=== PATIENT | female | born 1960 | race Caucasian/White ===

== ENCOUNTER 2022-03-11 11:19 | Inpatient (IN) | payer MEDICARE, MEDICAID, SELFPAY ==
--- NOTE | ~2022-03-11 | CT_ITS ---
EXAMINATION: CT ABDOMEN AND PELVIS WITH CONTRAST CLINICAL INFORMATION: Question rectal bleeding. Abdominal pain and distention. COMPARISON: None TECHNIQUE: Multidetector volumetric images were obtained from the superior aspect of the liver through the pubic symphysis following administration 85 mL of Omnipaque 350 intravenous contrast. Sagittal and coronal reformatted images were obtained on the technologist's workstation. Oral contrast: No This CT examination was performed using dose optimization techniques as appropriate, variously including the following: *Automated exposure control *Adjustment of mA and/or kV according to patient size (this includes techniques or standardized protocols for targeted exams where dose is matched to indication/reason for exam; i.e. extremities or head) *Use of iterative reconstruction technique DLP: 737 mGy-cm FINDINGS: LUNG BASES: Dependent and subsegmental bibasilar atelectasis. Catheter tip terminates in the right atrium. LIVER, GALLBLADDER, AND BILIARY TREE: Normal hepatic attenuation. Focal fatty infiltration in the medial segment left liver lobe adjacent to the falciform lumen. No other liver lesions. Dilation of the extrahepatic common bile duct up to approximately 1.1 cm. Mild intrahepatic biliary ductal dilation. Multiple peripherally calcified gallstones. No gallbladder wall thickening or pericholecystic inflammatory change PANCREAS: Mild atrophy. No pancreatic lesion, ductal dilation, or peripancreatic inflammatory change. SPLEEN: Unremarkable. ADRENAL GLANDS: Unremarkable. KIDNEYS AND URETERS: Symmetric nephrograms. No hydronephrosis. 2.1 cm left lower pole simple renal cyst. No enhancing renal lesions. BLADDER: Irregularly thick-walled. Small bladder diverticuli. GASTROINTESTINAL TRACT: Very large/massive amount of formed stool distending the rectosigmoid colon. Mild prerectal/presacral edema. Rectum measures up to 11 cm in diameter. Sigmoid colon measures approximately 11.5 cm. In diameter additional marked distention of the more proximal colon with large amount of stool. No colonic wall thickening. Minimal scattered pericolonic free fluid. No pneumatosis or free air. Significant redundancy of the colon noted. No dilated small bowel loops. ABDOMINAL WALL: No significant hernia is appreciated. LYMPH NODES: No lymphadenopathy. VASCULAR: Normal caliber abdominal aorta. Mild vascular calcifications. PELVIC VISCERA: Grossly unremarkable. OSSEOUS STRUCTURES: Chronic appearing mild superior endplate compression deformities of T8, T9, T10, T11, T12, and L2. Chronic appearing left lower lateral rib fracture deformities. Multilevel degenerative disc disease in the spine. No acute fracture or suspicious osseous lesion. CT/CT abdomen pelvis w con IMPRESSION: 1. Very large/massive amount of formed stool markedly distending the rectum and sigmoid with proximal colonic dilation and mild pericolonic edema/inflammation. Findings are compatible with fecal impaction and distal colonic obstruction. 2. No specific findings of ischemic colitis are present. 3. Cholelithiasis and mild biliary ductal dilation. Cannot exclude CBD stones, distal CBD stricture or small ampullary lesion. Correlate with LFTs and consider further evaluation with MRCP. 4. Diffusely irregularly thick-walled urinary bladder with small bladder diverticuli correlate clinically with signs or symptoms of chronic cystitis or hematuria and additional workup as indicated. Fleischner guidelines were followed.
[2022-03-11 11:26] VITALS: BP 101/69; BP 112/70; PULSE 78; PULSE 99; RESP 18; TEMP 36.7; O2SAT 94; BMI 27.8
--- NOTE | 2022-03-11 11:33 | ED_ITS ---
HPI - Female Genitourinary General Chief complaint: Vaginal Bleeding Stated complaint: VAGINAL BLEEDING X'S 2 DAYS FROM SNF PER EMS Time Seen by Provider: 03/11/22 11:21 Source: patient and RN notes reviewed Mode of arrival: EMS Limitations: altered mental status (dementia) History of Present Illness HPI Narrative: Patient presents via EMS from a intermediate facility, [facility], for evaluation of vaginal bleeding x2 days. Per nursing note reports from the facility, patient is being treated with vaginal metronidazole gel for the past 2 days, yesterday upon administering gel, vaginal bleeding was noted. In addition they had mentioned patient reported abdominal pain 03/07. Patient has no complaints at this time. Is unaware of last menstrual period/menopause date. Related Data Home Medications Medication Instructions Recorded Confirmed acetaminophen 325 mg tablet 650 mg PO BID 03/11/22 03/11/22 aspirin 81 mg chewable tablet 81 mg PO DAILY 03/11/22 03/11/22 atorvastatin 10 mg tablet 1 tab PO DAILY@182903/11/22 03/11/22 chlorhexidine gluconate 0.12 % 15 ml PO DAILY 03/11/22 03/11/22 mouthwash cholecalciferol (vitamin D3) 1,250 1,250 mcg PO QMONTH 03/11/22 03/11/22 mcg (50,000 unit) capsule clozapine 100 mg tablet 1 tab PO DAILY 03/11/22 03/11/22 clozapine 200 mg tablet 1 tab PO DAILY@182903/11/22 03/11/22 clozapine 25 mg tablet 1 tab PO DAILY@182903/11/22 03/11/22 diltiazem HCl 120 mg 1 cap PO DAILY 03/11/22 03/11/22 capsule,extended release 24 hr lamotrigine 100 mg tablet 1 tab PO BID 03/11/22 03/11/22 lorazepam 1 mg tablet 1 tab PO BID 03/11/22 03/11/22 magnesium hydroxide 400 mg/5 mL 30 ml PO BID 03/11/22 03/11/22 oral suspension (Milk of Magnesia) metoprolol tartrate 25 mg tablet 1 tab PO BID 03/11/22 03/11/22 metronidazole 0.75 % vaginal gel 1 ea vaginal DAILY 03/11/22 03/11/22 olanzapine 10 mg tablet 10 mg PO BID 03/11/22 03/11/22 sennosides 8.6 mg tablet (senna) 8.6 mg PO BID 03/11/22 03/11/22 Allergies Allergy/AdvReac Type Severity Reaction Status Date / Time No Known Allergies Allergy Verified 03/11/22 11:32 Review of Systems Review of Systems: Yes Unobtainable due to mental status [facility] Past Medical History Attestation statement: The following information was validated with the patient. Source: old records reviewed Medical History Anoxic brain injury Dementia Epilepsy GERD (gastroesophageal reflux disease) Hyperlipidemia Hypertension Paroxysmal atrial fibrillation Schizophrenia Fei's paralysis Social History Social History Advance Directives: Yes Advance Directives Information Provided: No Advance Directives on File: No Physical Exam Vital Signs: Vital Signs: Last Vital Signs Temp 99.4 F 03/11/22 15:50 Pulse 90 03/11/22 15:50 Resp 14 03/11/22 15:50 BP 92/35 L 03/11/22 15:50 Pulse Ox 95 03/11/22 15:50 O2 Del Method 03/11/22 15:50 BMI result Body Mass Index 27.8 Vital signs have been reviewed as normal and appeared to be correct. Blood pressure normal.? Heart rate normal.? Respiration rate normal. Temperature normal.? Oxygen saturation normal. Appearance: Alert.?Oriented to person only, disoriented to place and time No acute distress.?Normal affect. Eyes: Pupils equal, round and reactive to light.? ENT: Pharynx normal.?? Neck: Normal inspection.? Neck supple.?? CVS: Heart sounds normal. Normal heart rate and rhythm.? Pulses normal.?? Respiratory: No respiratory distress.? Lung sounds clear to auscultation bilaterally?? Abdomen: round, deistended, non-tender to palpation.. Normoactive bowel sounds. Skin: Skin warm and dry.? Normal skin color.? Extremities: No lower extremity edema.? Neuro: Moves all extremities spontaneously. Sensation intact bilaterally. No motor deficits Course Course Course Narrative: Patient is a 61-year-old female with a past medical history of dementia, schizophrenia, anoxic brain injury, paroxysmal atrial fibrillation not on anticoagulation, GERD, hypertension, hyperlipidemia, epilepsy. She presents emergency department for evaluation of 2 days of vaginal bleeding, currently being treated with vaginal metronidazole cream. Unable to obtain history regarding age of menopause, abnormal Paps, family history of cancer. Per intermediate facility patient was previously reporting abdominal pain, at the time of my exam she does not report any pain, has no tenderness upon palpation, however her abdomen is rounded and semi-firm. Contacted , spoke with nurse Mria who advises the patient has not been examined by a medical provider, the metronidazole gel was prescribed by an on-call provider after nursing staff had reported noting vaginal bleeding . The story is not exactly clear, bright red blood was noted in the patient's brief, however she is incontinent of urine and stool, by her report, does not believe bleeding was noted directly from the vagina. Additionally, the staff reports that her abdomen is not typically distended as currently appears. At this time will obtain CBC, CMP, urinalysis, occult stool specimen, and CT of the abdomen and pelvis. Disposition pending results. Reevaluation(s) Reevaluation #1: Leukocytosis 18.2, no anemia, overall unremarkable CMP. Occult stool positive, suspect that the bright red blood noted in patient's brief was most likely rectal in nature as opposed to vaginal. Urinalysis positive for nitrates, 1+ leuk esterase, consistent with urinary tract infection. Remains hemodynamically stable, Will obtain a blood cultures and lactic acid, ceftriaxone 1 g, CT of the abdomen and pelvis is pending at this time. Time: 12:23 Reevaluation #2: CT of the abdomen reveals massive amount of formed stool markedly distending the rectum sigmoid colon with colonic dilation compatible with fecal impaction and distal colonic obstruction. Cholelithiasis with ductal dilation, LFT's is normal. Attempted manual disimpaction, large amount of soft/semi-formed stool was removed, the time of this exam patient noted to have no rectal tone. Consuled surgery, Dr Carlisle, who advised admission to medicine service. Spoke with hospitalist Dr. Mai, who accepted patient for admission. Time: 15:31 MDM - Female Genitourinary Medical Records Attestation: I reviewed the patient's medical records. Lab Data Attestation: I reviewed the patient's lab results. Result diagrams: 03/11/22 11:49 03/11/22 11:49 Labs: Lab Results 03/11/22 03/11/22 03/11/22 Range/Units 11:49 11:49 12:02 WBC 18.2 H (4.8-10.8) X10*3/uL RBC 4.23 (4.20-5.50) X10*6/uL Hgb 13.1 (12.0-16.0) g/dl Hct 40.1 (37.0-47.0) % MCV 94.8 (80.0-98.0) fL MCH 31.0 (27.0-33.0) pg MCHC 32.7 (31.0-35.0) g/dl RDW 13.9 (11.0-16.0) % Plt Count 320 (160-400) X10*3/uL MPV 10.2 (9.4-12.3) fL Immature Gran % (Auto) 0.8 H (0.0-0.4) % Neut % (Auto) 80.1 H (45-73) % Lymph % (Auto) 14.6 L (20-40) % [place] % (Auto) 4.3 (2-11) % Eos % (Auto) 0.0 (0-4) % Baso % (Auto) 0.2 (0-2) % Lymph # (Auto) 2.7 (1.2-4.9) X10*3/uL [place] # (Auto) 0.8 (0.1-1.2) X10*3/uL Eos # (Auto) 0.0 (0.0-0.4) X10*3/uL Baso # (Auto) 0.0 (0.0-0.2) X10*3/uL Abs Immat Gran (auto) 0.15 H (0.00-0.03) X10*3/uL Absolute Neuts (auto) 14.5 H (2.0-8.3) x10*3/uL Absolute Nucleated RBC 0.000 (0.0-0.012) X10*3/uL Nucleated RBC % (auto) 0.0 (0.0-0.2) /100WBC Sodium 142 (135-145) mmol/L Potassium 3.8 (3.3-5.1) mmol/L Chloride 106 (96-108) mmol/L Carbon Dioxide 26 (22-29) mmol/L Anion Gap 14 (12-20) BUN 38 H (9-16) mg/dL Creatinine 0.77 (0.5-1.4) mg/dL Estim Creat Clear Calc 87.3 Estimated GFR > 60 Random Glucose 164 H (60-115) mg/dL Lactic Acid (0.5-2.0) mmol/L Calcium 8.6 (8.4-10.2) mg/dL Total Bilirubin 0.3 (0.0-1.0) mg/dL Direct Bilirubin 0.2 (0.0-0.5) mg/dL AST 12 (5-31) U/L ALT 25 (0-31) U/L Alkaline Phosphatase 117 (39-117) U/L Total Protein 6.3 L (6.5-8.0) g/dL Albumin 3.7 (3.5-5.0) g/dL Urine Color YELLOW Urine Appearance CLOUDY Urine pH 6.0 (5.0-8.0) Ur Specific [place] 1.025 (1.005-1.025) Urine Protein TRACE (NEG-TRACE) MG/DL Urine Glucose (UA) NEG (NEG) MG/DL Urine Ketones 5 (NEG) MG/DL Urine Blood NEG (NEG) Urine Nitrite POS H (NEG) Ur Leukocyte Esterase 1+ H (NEG) Urine RBC 0 (0) /HPF Urine WBC 1-4 (0-4) /HPF Ur Squamous Epith Cells TRACE /LPF Amorphous Sediment 1+ /LPF Urine Bacteria 4+ /LPF Stool Occult Blood (NEGATIVE) 03/11/22 03/11/22 Range/Units 12:02 12:54 WBC (4.8-10.8) X10*3/uL RBC (4.20-5.50) X10*6/uL Hgb (12.0-16.0) g/dl Hct (37.0-47.0) % MCV (80.0-98.0) fL MCH (27.0-33.0) pg MCHC (31.0-35.0) g/dl RDW (11.0-16.0) % Plt Count (160-400) X10*3/uL MPV (9.4-12.3) fL Immature Gran % (Auto) (0.0-0.4) % Neut % (Auto) (45-73) % Lymph % (Auto) (20-40) % [place] % (Auto) (2-11) % Eos % (Auto) (0-4) % Baso % (Auto) (0-2) % Lymph # (Auto) (1.2-4.9) X10*3/uL [place] # (Auto) (0.1-1.2) X10*3/uL Eos # (Auto) (0.0-0.4) X10*3/uL Baso # (Auto) (0.0-0.2) X10*3/uL Abs Immat Gran (auto) (0.00-0.03) X10*3/uL Absolute Neuts (auto) (2.0-8.3) x10*3/uL Absolute Nucleated RBC (0.0-0.012) X10*3/uL Nucleated RBC % (auto) (0.0-0.2) /100WBC Sodium (135-145) mmol/L Potassium (3.3-5.1) mmol/L Chloride (96-108) mmol/L Carbon Dioxide (22-29) mmol/L Anion Gap (12-20) BUN (9-16) mg/dL Creatinine (0.5-1.4) mg/dL Estim Creat Clear Calc Estimated GFR Random Glucose (60-115) mg/dL Lactic Acid 1.4 (0.5-2.0) mmol/L Calcium (8.4-10.2) mg/dL Total Bilirubin (0.0-1.0) mg/dL Direct Bilirubin (0.0-0.5) mg/dL AST (5-31) U/L ALT (0-31) U/L Alkaline Phosphatase (39-117) U/L Total Protein (6.5-8.0) g/dL Albumin (3.5-5.0) g/dL Urine Color Urine Appearance Urine pH (5.0-8.0) Ur Specific [place] (1.005-1.025) Urine Protein (NEG-TRACE) MG/DL Urine Glucose (UA) (NEG) MG/DL Urine Ketones (NEG) MG/DL Urine Blood (NEG) Urine Nitrite (NEG) Ur Leukocyte Esterase (NEG) Urine RBC (0) /HPF Urine WBC (0-4) /HPF Ur Squamous Epith Cells /LPF Amorphous Sediment /LPF Urine Bacteria /LPF Stool Occult Blood POSITIVE (NEGATIVE) Imaging Data CT scan - abdomen: Radiologist's impression: CT/CT abdomen pelvis w con IMPRESSION: ? 1. Very large/massive amount of formed stool markedly distending the rectum and sigmoid with proximal colonic dilation and mild pericolonic edema/inflammation. Findings are compatible with fecal impaction and distal colonic obstruction. 2. No specific findings of ischemic colitis are present. 3. Cholelithiasis and mild biliary ductal dilation. Cannot exclude CBD stones, distal CBD stricture or small ampullary lesion. Correlate with LFTs and consider further evaluation with MRCP. 4. Diffusely irregularly thick-walled urinary bladder with small bladder diverticuli correlate clinically with signs or symptoms of chronic cystitis or hematuria and additional workup as indicated. Discharge Plan Discharge Clinical Impression: Fecal impaction Patient Disposition: Admitted As Inpatient
[2022-03-11 11:52] LABS: MANUAL DIFF FLAG NO
[2022-03-11 11:55] LABS: Basophils Percent Auto 0.2 % (0-2); Hematocrit 40.1 % (37.0-47.0); Hemoglobin 13.1 g/dl (12.0-16.0); Imm Gran Abs Auto 0.15 X10*3/uL (0.00-0.03); Imm Gran Pct Auto 0.8 % (0.0-0.4); Lymphocytes Absolute Auto 2.7 X10*3/uL (1.2-4.9); Lymphocytes Percent Auto 14.6 % (20-40); Mean Corpuscular HGB Conc 32.7 g/dl (31.0-35.0); Mean Corpuscular Volume 94.8 fL (80.0-98.0); Mean Platelet Volume 10.2 fL (9.4-12.3); Monocytes Absolute Auto 0.8 X10*3/uL (0.1-1.2); Monocytes Percent Auto 4.3 % (2-11); Neutrophils Absolute Auto 14.5 x10*3/uL (2.0-8.3); Neutrophils Percent Auto 80.1 % (45-73); Platelet Count 320 X10*3/uL (160-400); Red Blood Count 4.23 X10*6/uL (4.20-5.50); Red Cell Distribution Width 13.9 % (11.0-16.0); White Blood Count 18.2 X10*3/uL (4.8-10.8)
[2022-03-11 12:02] VITALS: BP 95/59; PULSE 92; RESP 18; O2SAT 95
[2022-03-11 12:09] LABS: OBS Int Ctl Valid YES; OBS1 POSITIVE (NEGATIVE)
[2022-03-11 12:12] LABS: Appearance Urine CLOUDY; Color Urine YELLOW; Glucose Urine UA NEG (NEG); Leukocyte Esterase Urine 1+ (NEG); Nitrite Urine POS (NEG); Specific Gravity - Urine 1.025 (1.005-1.025); UACC Culture Trigger YES; Urine Blood NEG (NEG); Urine Ketones 5 MG/DL (NEG); Urine Protein TRACE MG/DL (NEG-TRACE)
[2022-03-11 12:13] LABS: Anion Gap 14 (12-20); Blood Urea Nitrogen 38 mg/dL (9-16); Calcium 8.6 mg/dL (8.4-10.2); Carbon Dioxide 26 mmol/L (22-29); Chloride 106 mmol/L (96-108); Creatinine Clr Calc Pharmacy 87.3; Estimated Glomerular Filt Rate > 60; Glucose Random 164 mg/dL (60-115); Potassium 3.8 mmol/L (3.3-5.1); Sodium 142 mmol/L (135-145)
[2022-03-11 12:19] LABS: Bacteria Urine 4+ /LPF
[2022-03-11 12:20] LABS: Squamous Epithelial Cell Urine TRACE /LPF
[2022-03-11 12:21] LABS: Amorphous Sediment Urine 1+ /LPF; RBC Urine 0 /HPF (0)
[2022-03-11] MEDS: 0.9 % Sodium Chloride 1,000 ML 999 ML IV ×2 (12:58→17:34)
[2022-03-11 13:13] LABS: Alanine Aminotransferase 25 U/L (0-31); Albumin Level 3.7 g/dL (3.5-5.0); Alkaline Phosphatase 117 U/L (39-117); Aspartate Amino Transferase 12 U/L (5-31); Bilirubin Direct 0.2 mg/dL (0.0-0.5); Bilirubin Total 0.3 mg/dL (0.0-1.0); Total Protein 6.3 g/dL (6.5-8.0)
[2022-03-11 13:16] LABS: Lactic Acid 1.4 mmol/L (0.5-2.0)
[2022-03-11] MEDS: cefTRIAXone sodium 1 GM in 0.9 % Sodium Chloride 50 ML IV (13:46)
[2022-03-11] MEDS: iohexoL 350 MG/ML 100 ML INFUS..BTL IV (13:50)
[2022-03-11 14:20] VITALS: BP 101/61; PULSE 88; RESP 18; O2SAT 94
[2022-03-11 15:50] VITALS: BP 92/35; PULSE 90; RESP 14; TEMP 37.4; O2SAT 95
--- NOTE | 2022-03-11 16:24 | PM.CNGS ---
History of Present Illness Consult details Consult date: 03/11/22 Reason for consult: other (Constipation and colon distention on CT) Narrative: The patient is a 61-year-old woman who is a long-term resident in a nursing facility, [facility], who is seen at the request of the emergency room team here at [facility] because of abdominal distention. Patient is a poor historian but EMR documents Anoxic brain injury, Dementia, Epilepsy, GERD (gastroesophageal reflux disease), Hyperlipidemia, Hypertension, Paroxysmal atrial fibrillation, Schizophrenia, Fei's paralysis notes that she has been having difficulty with bowel movements for some time. The nurse practitioner tried to manually disimpact the patient encountered soft and firm stool, no rock hard rectal mass, but CT scan of the abdomen pelvis shows a significant stool burden in the colon. Per records, the patient was having vaginal bleeding of unclear etiology. Please see ER notes for additional details regarding medications. Review of Systems Review of Systems: Yes all other systems are reviewed and are negative and Unobtainable due to mental condition PMFSH Past Medical History Medical History (Updated 03/11/22 @ 16:34 by Galen Carlisle MD) Anoxic brain injury Dementia Epilepsy GERD (gastroesophageal reflux disease) Hyperlipidemia Hypertension Paroxysmal atrial fibrillation Schizophrenia Fei's paralysis Functional capacity: bed bound Social History Social History Advance Directives: Yes Advance Directives Information Provided: No Advance Directives on File: No Meds Allergies Allergy/AdvReac Type Severity Reaction Status Date / Time No Known Allergies Allergy Verified 03/11/22 11:32 Active Medications: Current Medications Pharmacy Consult (Consult Rx Perform Med Rec) 1 each MISCELLANE ONCE PRN PRN Reason: Consult order Physical Exam Vital Signs: Vital Signs: Last Vital Signs Temp 99.4 F 03/11/22 15:50 Pulse 90 03/11/22 15:50 Resp 14 03/11/22 15:50 BP 92/35 L 03/11/22 15:50 Pulse Ox 95 03/11/22 15:50 O2 Del Method 03/11/22 15:50 BMI result Body Mass Index 27.8 On exam, the patient is nontoxic but communicative. NC/AT, PERRLA, EOMI Heart is regular, normal S1-S2 Lungs are clear and equal anteriorly Abdomen is distended and obese but soft. There is tympany to percussion but there is no peritoneal sign and no rebound, rigidity or guarding Rectal was deferred as the nurse practitioner had just attempted manual disimpaction in also noted patulous sphincter tone in addition to soft stool Skin has decreased turgor is to be expected with her age Extremities are free of cyanosis clubbing edema Results Labs Result diagrams: 03/11/22 11:49 03/11/22 11:49 Labs: Abnormal lab results 03/11/22 03/11/22 03/11/22 Range/Units 11:49 11:49 12:02 WBC 18.2 H (4.8-10.8) X10*3/uL Immature Gran % (Auto) 0.8 H (0.0-0.4) % Neut % (Auto) 80.1 H (45-73) % Lymph % (Auto) 14.6 L (20-40) % Abs Immat Gran (auto) 0.15 H (0.00-0.03) X10*3/uL Absolute Neuts (auto) 14.5 H (2.0-8.3) x10*3/uL BUN 38 H (9-16) mg/dL Random Glucose 164 H (60-115) mg/dL Total Protein 6.3 L (6.5-8.0) g/dL Urine Nitrite POS H (NEG) Ur Leukocyte Esterase 1+ H (NEG) Short CBC 03/11/22 Range/Units 11:49 WBC 18.2 H (4.8-10.8) X10*3/uL Hgb 13.1 (12.0-16.0) g/dl Hct 40.1 (37.0-47.0) % Plt Count 320 (160-400) X10*3/uL BMP 03/11/22 11:49 Sodium 142 Potassium 3.8 Chloride 106 Carbon Dioxide 26 BUN 38 H Creatinine 0.77 Calcium 8.6 Liver Function 03/11/22 Range/Units 11:49 Total Bilirubin 0.3 (0.0-1.0) mg/dL Direct Bilirubin 0.2 (0.0-0.5) mg/dL AST 12 (5-31) U/L ALT 25 (0-31) U/L Alkaline Phosphatase 117 (39-117) U/L Albumin 3.7 (3.5-5.0) g/dL Urine 03/11/22 Range/Units 12:02 Urine Color YELLOW Urine Appearance CLOUDY Urine pH 6.0 (5.0-8.0) Ur Specific [place] 1.025 (1.005-1.025) Urine Protein TRACE (NEG-TRACE) MG/DL Urine Glucose (UA) NEG (NEG) MG/DL All other labs normal. Imaging Abdomen CT scan report/results: report reviewed and image reviewed CT scan - pelvis: report reviewed and image reviewed Additional studies: In reviewing the actual images, the colon is dilated and full of stool to the transverse colon. Assessment and Plan (1) Constipation: Status: Acute (2) Fecal impaction: Status: Acute Plan Would recommend soapsuds enemas possibly with a rectal bag to slowly infused thumb. There is a significant stool burden will not be reach by digital disimpaction as evidence by the nurse practitioners attempt. I have ordered a GI consultation to Dr. Handley; I am not sure if there is a prokinetic agent that would benefit the patient, or role for laxative/bowel regime. Would encourage discussion with GI before recommending surgery. Additional information regarding her immobility, etiology of her constipation, DPOA regarding health matters/consent discussion for a possible laparoscopic diverting/permanent colostomy may be in order at a later time, however without clearly identifying her constipation cause and whether or not she requires subtotal colectomy is in order. Medical management with lactulose or some other agent would be preferable to surgery at this time, or other PO laxatives unless GI has another suggestion. Thank you for allowing me to participate in her care. Please call me with any surgical questions. Procedures Date of Service Date of Service: 03/11/22
--- NOTE | 2022-03-11 16:54 | P.HPHOSP_ITS ---
History of Present Illness Date of Service: 03/11/22 Chief Complaint: Abdominal distension, rectal bleeding A 61 years old female with PMH of anoxic brain injury, dementia, epilepsy, GERD, HTN, AFib, schizophrenia among others who presents to the hospital from [facility] for abdominal distension and bleeding that was thought vaginal at the facility. The patient is unable to provide any meaningful history. History was taken mainly from ED provider and notes. Upon resent patient PLATINUM SMITH tried manual disimpaction of the large stool burden and impaction and was able to remove semi formed stool with no rock-hard stool noticed. CT scan of the abdomen showed significant colonic distension and stool burden. Admitted for further evaluation and treatment. Review of Systems Review of Systems: No fever, chills or weakness No chest pain, palpitation No shortness of breath or coughing No abdominal pain, nausea or vomiting No urinary symptoms No any rash or wounds PMFSH Medical History Anoxic brain injury Dementia Epilepsy GERD (gastroesophageal reflux disease) Hyperlipidemia Hypertension Paroxysmal atrial fibrillation Schizophrenia Fei's paralysis Functional capacity: bed bound Social History Advance Directives: Yes Advance Directives Information Provided: No Advance Directives on File: No Meds Allergies Allergy/AdvReac Type Severity Reaction Status Date / Time No Known Allergies Allergy Verified 03/11/22 11:32 Active Medications: Current Medications Acetaminophen (Acetaminophen 325 Mg Tablet) 650 mg PO Q6H PRN PRN Reason: Pain, Mild (Pain Scale 1-3) Sodium Chloride (Ns) 1,000 mls @ 999 mls/hr IV .Q1H1M MICHELLE Stop: 03/11/22 17:30 Ceftriaxone Sodium 1 gm/ (Sodium Chloride) 50 mls @ 100 mls/hr IV Q24H MICHELLE Sodium Chloride () 1,000 mls @ 100 mls/hr IVCONT .Q10H MICHELLE Ondansetron HCl (Ondansetron Hcl 4 Mg/2 Ml Vial) 4 mg IVPUSH Q8H PRN PRN Reason: Nausea and Vomiting Pharmacy Consult (Consult Rx Perform Med Rec) 1 each MISCELLANE ONCE PRN PRN Reason: Consult order Polyethylene Glycol (Polyethylene Glycol 3350 17 Gm Powd.Pack) 17 gm PO BID MICHELLE Senna (Senna [place] Extract Oral Syrup 15 Ml Syrup) 15 ml PO BEDTIME [facility] Sodium Chloride (0.9 % Sodium Chloride Flush 3 Ml Syringe) 3 ml IVFLUSH [facility] Home Medications Medication Instructions Recorded Confirmed Last Taken Type acetaminophen 325 mg tablet 650 mg PO BID 03/11/22 03/11/22 03/11/22 History aspirin 81 mg chewable tablet 81 mg PO DAILY 03/11/22 03/11/22 03/11/22 History atorvastatin 10 mg tablet 1 tab PO DAILY@182903/11/22 03/11/22 03/10/22 History chlorhexidine gluconate 0.12 % 15 ml PO DAILY 03/11/22 03/11/22 03/11/22 History mouthwash cholecalciferol (vitamin D3) 1,250 1,250 mcg PO QMONTH 03/11/22 03/11/22 03/02/22 History mcg (50,000 unit) capsule clozapine 100 mg tablet 1 tab PO DAILY 03/11/22 03/11/22 03/11/22 09:00 History clozapine 200 mg tablet 1 tab PO DAILY@182903/11/22 03/11/22 03/10/22 History clozapine 25 mg tablet 1 tab PO DAILY@182903/11/22 03/11/22 03/10/22 History diltiazem HCl 120 mg 1 cap PO DAILY 03/11/22 03/11/22 03/11/22 History capsule,extended release 24 hr lamotrigine 100 mg tablet 1 tab PO BID 03/11/22 03/11/22 03/11/22 09:00 History lorazepam 1 mg tablet 1 tab PO BID 03/11/22 03/11/22 03/11/22 09:00 History magnesium hydroxide 400 mg/5 mL 30 ml PO BID 03/11/22 03/11/22 03/11/22 History oral suspension (Milk of Magnesia) metoprolol tartrate 25 mg tablet 1 tab PO BID 03/11/22 03/11/22 03/11/22 09:00 History metronidazole 0.75 % vaginal gel 1 ea vaginal DAILY 03/11/22 03/11/22 03/11/22 History olanzapine 10 mg tablet 10 mg PO BID 03/11/22 03/11/22 03/11/22 History sennosides 8.6 mg tablet (senna) 8.6 mg PO BID 03/11/22 03/11/22 03/11/22 History Physical Exam Vital Signs and Narrative: Vital Signs: Last Vital Signs Temp 99.4 F 03/11/22 15:50 Pulse 90 03/11/22 15:50 Resp 14 03/11/22 15:50 BP 92/35 L 03/11/22 15:50 Pulse Ox 95 03/11/22 15:50 O2 Del Method 03/11/22 15:50 BMI result Body Mass Index 27.8 Const: Other: Constitutional : Alert, interactive, not in distress Neck : Normal inspection, Supple Cardiovascular : RRR, no JVP, no lower extremity edema Respiratory : fair bilateral air entry, no crackles, wheezes or rhonchi Gastrointestinal: soft, lax, decreased bowel sounds, Non tender, distended abdomen Skin : Warm, Dry Neurological : Alert & disoriented to time and place, No focal deficit Results Labs CBC and Chem 7: 03/11/22 11:49 03/11/22 11:49 Labs: Laboratory Results - last 24 hr 03/11/22 03/11/22 03/11/22 11:49 11:49 12:02 MCV 94.8 MCH 31.0 MCHC 32.7 RDW 13.9 Plt Count 320 MPV 10.2 Immature Gran % (Auto) 0.8 H Neut % (Auto) 80.1 H Lymph % (Auto) 14.6 L [place] % (Auto) 4.3 Eos % (Auto) 0.0 Baso % (Auto) 0.2 Lymph # (Auto) 2.7 [place] # (Auto) 0.8 Eos # (Auto) 0.0 Baso # (Auto) 0.0 Abs Immat Gran (auto) 0.15 H Absolute Neuts (auto) 14.5 H Absolute Nucleated RBC 0.000 Nucleated RBC % (auto) 0.0 Anion Gap 14 Estim Creat Clear Calc 87.3 Estimated GFR > 60 Random Glucose 164 H Lactic Acid Calcium 8.6 Total Bilirubin 0.3 Direct Bilirubin 0.2 AST 12 ALT 25 Alkaline Phosphatase 117 Total Protein 6.3 L Albumin 3.7 Urine Color YELLOW Urine Appearance CLOUDY Urine pH 6.0 Ur Specific [place] 1.025 Urine Protein TRACE Urine Glucose (UA) NEG Urine Ketones 5 Urine Blood NEG Urine Nitrite POS H Ur Leukocyte Esterase 1+ H Urine RBC 0 Urine WBC 1-4 Ur Squamous Epith Cells TRACE Amorphous Sediment 1+ Urine Bacteria 4+ Stool Occult Blood 03/11/22 03/11/22 12:02 12:54 MCV MCH MCHC RDW Plt Count MPV Immature Gran % (Auto) Neut % (Auto) Lymph % (Auto) [place] % (Auto) Eos % (Auto) Baso % (Auto) Lymph # (Auto) [place] # (Auto) Eos # (Auto) Baso # (Auto) Abs Immat Gran (auto) Absolute Neuts (auto) Absolute Nucleated RBC Nucleated RBC % (auto) Anion Gap Estim Creat Clear Calc Estimated GFR Random Glucose Lactic Acid 1.4 Calcium Total Bilirubin Direct Bilirubin AST ALT Alkaline Phosphatase Total Protein Albumin Urine Color Urine Appearance Urine pH Ur Specific [place] Urine Protein Urine Glucose (UA) Urine Ketones Urine Blood Urine Nitrite Ur Leukocyte Esterase Urine RBC Urine WBC Ur Squamous Epith Cells Amorphous Sediment Urine Bacteria Stool Occult Blood POSITIVE Imaging Radiologist's Impressions: Impressions Abdomen/Pelvis CT 03/11/22 13:48 IMPRESSION: 1. Very large/massive amount of formed stool markedly distending the rectum and sigmoid with proximal colonic dilation and mild pericolonic edema/inflammation. Findings are compatible with fecal impaction and distal colonic obstruction. 2. No specific findings of ischemic colitis are present. 3. Cholelithiasis and mild biliary ductal dilation. Cannot exclude CBD stones, distal CBD stricture or small ampullary lesion. Correlate with LFTs and consider further evaluation with MRCP. 4. Diffusely irregularly thick-walled urinary bladder with small bladder diverticuli correlate clinically with signs or symptoms of chronic cystitis or hematuria and additional workup as indicated. Fleischner guidelines were followed. Assessment and Plan (1) Fecal impaction: Status: Acute (2) Constipation: Status: Acute (3) Hypotension: Status: Acute Plan A 61 years old female with PMH of anoxic brain injury, dementia, epilepsy, GERD, HTN, AFib, schizophrenia among others who presents to the hospital from [facility] for abdominal distension and bleeding . Severe constipation Fecal impaction CT scan as reported Mechanically disimpacted in the emergency Start enema Start MiraLax and senna Surgery input appreciated, hold on any intervention now and get GI evaluation GI consult pending Hypotension Not due to sepsis Patient seems to be dehydrated with elevated BUN To give IV fluid and monitor response Anoxic brain injury, seizure disorder To continue home medications Paroxysmal AFib Hold any anticoagulation continue ?Metoprolol schizophrenia Clozapine, Olanzapine home dose DVT PPX SCDs for now Given the patient hypotension and severe constipation she will likely need 2 overnight hospital stay for further evaluation and management. Quality Stroke Does the patient have a stroke diagnosis?: No VTE Prior VTE?: No VTE Risk Level:: Medical - moderate - high VTE Device Contraindication: Treatment Not Indicated VTE Drug Contraindication: Treatment Not Indicated
[2022-03-11 17:41] LABS: COVID-19 Test Negative (Negative); IDNOW Serial# 9DB6401D
--- NOTE | 2022-03-11 17:44 | PHA.MEDREC ---
Pharmacy Consult ? Medication Reconciliation Pharmacy has completed the medication reconciliation. [facility]
[2022-03-11] MEDS: Atorvastatin Calcium 10 MG TABLET PO (18:47)
[2022-03-11] MEDS: cloZAPine 100 MG TABLET 200 MG PO (19:12)
[2022-03-11] MEDS: cloZAPine 25 MG TABLET PO (19:12)
[2022-03-11] MEDS: LORazepam 1 MG TABLET PO (20:38)
[2022-03-11] MEDS: OLANZapine 10 MG TABLET PO (20:38)
[2022-03-11] MEDS: lamoTRIgine 100 MG TABLET PO (20:38)
[2022-03-11] MEDS: Metoprolol Tartrate 25 MG TABLET PO (20:38)
[2022-03-11] MEDS: Acetaminophen 325 MG TABLET 650 MG PO (20:38)
[2022-03-11 20:45] VITALS: BP 103/66; PULSE 100; RESP 17; O2SAT 94
--- NOTE | 2022-03-11 20:54 | PC.NURSE ---
administered medication to pt per MAR
--- NOTE | 2022-03-11 20:55 | PC.NURSE ---
assumed care of pt at 1900
[2022-03-11] MEDS: polyethylene glycoL 3350 17 GM POWD.PACK PO (21:00)
[2022-03-11 23:08] VITALS: BP 103/72; PULSE 91; RESP 16; TEMP 36.8; O2SAT 98
--- NOTE | 2022-03-11 23:09 | PC.NURSE ---
PATIENT CAME OVER FROM MAIN ED ,GOT MOVED INTO BED ,VITALS SIGN TAKEN PER ENRRIQUE APPLY,PATIENT NOW RESTING .
--- NOTE | 2022-03-12 00:23 | PC.NURSE ---
PATIENT ASK FOR SOME JUICE DRANK 120 ML ORANGE JUICE .
[2022-03-12] MEDS: Sodium Chloride 0.45 % 1,000 ML 100 ML IVCONT (02:53)
[2022-03-12 05:44] VITALS: BP 117/72; PULSE 95; RESP 16; TEMP 36.3; O2SAT 98
[2022-03-12 06:54] LABS: Hematocrit 39.5 % (37.0-47.0); Hemoglobin 12.5 g/dl (12.0-16.0); Mean Corpuscular HGB Conc 31.6 g/dl (31.0-35.0); Mean Corpuscular Hemoglobin 30.8 pg (27.0-33.0); Mean Corpuscular Volume 97.3 fL (80.0-98.0); Mean Platelet Volume 10.5 fL (9.4-12.3); Platelet Count 315 X10*3/uL (160-400); Red Blood Count 4.06 X10*6/uL (4.20-5.50); Red Cell Distribution Width 13.9 % (11.0-16.0); White Blood Count 18.3 X10*3/uL (4.8-10.8)
[2022-03-12 07:19] LABS: Anion Gap 12 (12-20); Blood Urea Nitrogen 29 mg/dL (9-16); Calcium 8.1 mg/dL (8.4-10.2); Carbon Dioxide 25 mmol/L (22-29); Chloride 110 mmol/L (96-108); Creatinine Clr Calc Pharmacy 90.9; Estimated Glomerular Filt Rate > 60; Glucose Random 115 mg/dL (60-115); Potassium 3.9 mmol/L (3.3-5.1); Sodium 143 mmol/L (135-145)
--- NOTE | 2022-03-12 07:40 | P.CNGI_ITS ---
History of Present Illness Data of Consult Service Date: 03/12/22 Requesting physician: Roni Mai Primary Care Provider: Vanita Wilson MD HPI Reason for consult: rectal bleeding, constipation 61 years old female with PMH of anoxic brain injury, dementia, epilepsy, GERD, HTN, AFib, schizophrenia among others who presents to the hospital from [facility] for abdominal distension and bleeding that was thought vaginal at the facility.? The patient is unable to provide any meaningful history.? History was taken mainly from ED provider and notes. Upon resent patient OCC THER tried manual disimpaction of the large stool burden and impaction and was able to remove semi formed stool with no rock-hard stool noticed.? CT scan of the abdomen showed significant colonic distension and stool burden. Admitted for further evaluation and treatment. Review of Systems Review of Systems: Yes Unobtainable due to mental condition and Unobtainable due to mental status PMFSH Past Medical History Medical History Anoxic brain injury Dementia Epilepsy GERD (gastroesophageal reflux disease) Hyperlipidemia Hypertension Paroxysmal atrial fibrillation Schizophrenia Fei's paralysis Functional capacity: bed bound Social History Social History Advance Directives: Yes Advance Directives Information Provided: No Advance Directives on File: No Meds Allergies Allergy/AdvReac Type Severity Reaction Status Date / Time No Known Allergies Allergy Verified 03/11/22 11:32 Active Medications: Current Medications Acetaminophen (Acetaminophen 325 Mg Tablet) 650 mg PO Q6H PRN PRN Reason: Pain, Mild (Pain Scale 1-3) Acetaminophen (Acetaminophen 325 Mg Tablet) 650 mg PO BID [facility] Last Admin: 03/11/22 20:38 Dose: 650 mg Aspirin (Aspirin 81 Mg Tab.Chew) 81 mg PO DAILY [facility] Atorvastatin Calcium (Atorvastatin Calcium 10 Mg Tablet) 10 mg PO DAILY@183 [facility] Last Admin: 03/11/22 18:47 Dose: 10 mg Chlorhexidine Gluconate (Chlorhexidine Gluc Oral Rinse 15 Ml Mouthwash) 15 ml BUCCAL DAILY [facility] Clozapine (Clozapine 25 Mg Tablet) 25 mg PO DAILY@183 [facility] Last Admin: 03/11/22 19:12 Dose: 25 mg Clozapine (Clozapine 100 Mg Tablet) 100 mg PO DAILY [facility] Clozapine (Clozapine 100 Mg Tablet) 200 mg PO DAILY@1830 [facility] Last Admin: 03/11/22 19:12 Dose: 200 mg Diltiazem HCl (Diltiazem Hcl Cd 120 Mg Cap.Er.Deg) 120 mg PO DAILY [facility]; Protocol Ceftriaxone Sodium 1 gm/ (Sodium Chloride) 50 mls @ 100 mls/hr IV Q24H [facility] Sodium Chloride () 1,000 mls @ 100 mls/hr IVCONT .Q10H [facility] Last Admin: 03/12/22 02:53 Dose: 100 mls/hr Lamotrigine (Lamotrigine 100 Mg Tablet) 100 mg PO BID [facility] Last Admin: 03/11/22 20:38 Dose: 100 mg Lorazepam (Lorazepam 1 Mg Tablet) 1 mg PO BID [facility] Last Admin: 03/11/22 20:38 Dose: 1 mg Magnesium Hydroxide (Milk Of Magnesia 30 Ml Oral.Susp) 30 ml PO BID [facility] Last Admin: 03/11/22 22:23 Dose: Not Given Metoprolol Tartrate (Metoprolol Tartrate 25 Mg Tablet) 25 mg PO BID [facility]; Protocol Last Admin: 03/11/22 20:38 Dose: 25 mg Metronidazole (Metronidazole 0.75 % Vaginal Gel 70 Gm Tube) 5 gm VAGINAL DAILY [facility] Olanzapine (Olanzapine 10 Mg Tablet) 10 mg PO BID [facility] Last Admin: 03/11/22 20:38 Dose: 10 mg Ondansetron HCl (Ondansetron Hcl 4 Mg/2 Ml Vial) 4 mg IVPUSH Q8H PRN PRN Reason: Nausea and Vomiting Pharmacy Consult (Consult Rx Perform Med Rec) 1 each MISCELLANE ONCE PRN PRN Reason: Consult order Polyethylene Glycol (Polyethylene Glycol 3350 17 Gm Powd.Pack) 17 gm PO BID [facility] Last Admin: 03/11/22 21:00 Dose: 17 gm Senna (Senna [place] Extract Oral Syrup 15 Ml Syrup) 15 ml PO BEDTIME [facility] Last Admin: 03/11/22 22:23 Dose: Not Given Senna (Sennosides 8.6 Mg Tablet) 8.6 mg PO BID [facility] Last Admin: 03/11/22 22:23 Dose: Not Given Sodium Chloride (0.9 % Sodium Chloride Flush 3 Ml Syringe) 3 ml IVFLUSH QSHIFT [facility] Last Admin: 03/12/22 00:29 Dose: Not Given Home Medications Medication Instructions Recorded Confirmed Last Taken Type acetaminophen 325 mg tablet 650 mg PO BID 03/11/22 03/11/22 03/11/22 History aspirin 81 mg chewable tablet 81 mg PO DAILY 03/11/22 03/11/22 03/11/22 History atorvastatin 10 mg tablet 1 tab PO DAILY@0 03/11/22 03/11/22 03/10/22 History chlorhexidine gluconate 0.12 % 15 ml PO DAILY 03/11/22 03/11/22 03/11/22 History mouthwash cholecalciferol (vitamin D3) 1,250 1,250 mcg PO QMONTH 03/11/22 03/11/22 03/02/22 History mcg (50,000 unit) capsule clozapine 100 mg tablet 1 tab PO DAILY 03/11/22 03/11/22 03/11/22 09:00 History clozapine 200 mg tablet 1 tab PO DAILY@182903/11/22 03/11/22 03/10/22 History clozapine 25 mg tablet 1 tab PO DAILY@182903/11/22 03/11/22 03/10/22 History diltiazem HCl 120 mg 1 cap PO DAILY 03/11/22 03/11/22 03/11/22 History capsule,extended release 24 hr lamotrigine 100 mg tablet 1 tab PO BID 03/11/22 03/11/22 03/11/22 09:00 History lorazepam 1 mg tablet 1 tab PO BID 03/11/22 03/11/22 03/11/22 09:00 History magnesium hydroxide 400 mg/5 mL 30 ml PO BID 03/11/22 03/11/22 03/11/22 History oral suspension (Milk of Magnesia) metoprolol tartrate 25 mg tablet 1 tab PO BID 03/11/22 03/11/22 03/11/22 09:00 History metronidazole 0.75 % vaginal gel 1 ea vaginal DAILY 03/11/22 03/11/22 03/11/22 History olanzapine 10 mg tablet 10 mg PO BID 03/11/22 03/11/22 03/11/22 History sennosides 8.6 mg tablet (senna) 8.6 mg PO BID 03/11/22 03/11/22 03/11/22 History Physical Exam Vital Signs: Vital Signs: Last Vital Signs Temp 97.4 F 03/12/22 05:44 Pulse 95 03/12/22 05:44 Resp 16 03/12/22 05:44 BP 117/72 03/12/22 05:44 Pulse Ox 98 03/12/22 05:44 O2 Del Method 03/12/22 05:44 BMI result Body Mass Index 27.8 Const: Other: Constitutional : Alert, interactive, not in distress Neck : Normal inspection, Supple Cardiovascular : RRR, no JVP, no lower extremity edema Respiratory : fair bilateral air entry, no crackles, wheezes or rhonchi Gastrointestinal: soft, lax, decreased bowel sounds, Non tender, distended abdomen Skin : Warm, Dry Neurological : Alert & disoriented to time and place, No focal deficit Results Labs CBC & Chem 7: 03/12/22 06:37 03/12/22 06:37 Labs: Short CBC 03/11/22 03/12/22 Range/Units 11:49 06:37 WBC 18.2 H 18.3 H (4.8-10.8) X10*3/uL Hgb 13.1 12.5 (12.0-16.0) g/dl Hct 40.1 39.5 (37.0-47.0) % Plt Count 320 315 (160-400) X10*3/uL BMP 03/11/22 03/12/22 11:49 06:37 Sodium 142 143 Potassium 3.8 3.9 Chloride 106 110 H Carbon Dioxide 26 25 BUN 38 H 29 H Creatinine 0.77 0.74 Calcium 8.6 8.1 L Liver Function 03/11/22 Range/Units 11:49 Total Bilirubin 0.3 (0.0-1.0) mg/dL Direct Bilirubin 0.2 (0.0-0.5) mg/dL AST 12 (5-31) U/L ALT 25 (0-31) U/L Alkaline Phosphatase 117 (39-117) U/L Albumin 3.7 (3.5-5.0) g/dL Urine 03/11/22 Range/Units 12:02 Urine Color YELLOW Urine Appearance CLOUDY Urine pH 6.0 (5.0-8.0) Ur Specific [place] 1.025 (1.005-1.025) Urine Protein TRACE (NEG-TRACE) MG/DL Urine Glucose (UA) NEG (NEG) MG/DL Assessment and Plan (1) Fecal impaction: Status: Acute (2) Constipation: Status: Acute
[2022-03-12 08:20] LABS: Thyroid Stimulating Hormone 1.11 uIU/mL (0.32-4.0)
[2022-03-12] MEDS: Chlorhexidine Gluc Oral Rinse 15 ML MOUTHWASH BUCCAL (09:37)
[2022-03-12] MEDS: Milk of Magnesia 30 ML ORAL.SUSP PO (09:37)
[2022-03-12] MEDS: dilTIAZem HCL CD 120 MG CAP.ER.DEG PO (09:37)
[2022-03-12] MEDS: polyethylene glycoL 3350 17 GM POWD.PACK PO (09:37)
[2022-03-12] MEDS: Sennosides 8.6 MG TABLET PO (09:37)
[2022-03-12] MEDS: Acetaminophen 325 MG TABLET 650 MG PO (09:38)
[2022-03-12] MEDS: Metoprolol Tartrate 25 MG TABLET PO (09:38)
[2022-03-12] MEDS: lamoTRIgine 100 MG TABLET PO (09:38)
[2022-03-12] MEDS: OLANZapine 10 MG TABLET PO (09:38)
[2022-03-12] MEDS: LORazepam 1 MG TABLET PO (09:38)
[2022-03-12] MEDS: cloZAPine 100 MG TABLET PO (09:38)
[2022-03-12] MEDS: Aspirin 81 MG TAB.CHEW PO (09:38)
[2022-03-12] MEDS: 0.9 % Sodium Chloride Flush 3 ML SYRINGE IVFLUSH (09:39)
--- NOTE | 2022-03-12 12:07 | PC.NURSE ---
Pt Alert, oriented to person only which appears to be baseline. Pt found this AM to be covered in large amount of hard formed stool as well as liquid stool. Dried and crusted to skin. Inc care, linen change and T&Px2 every 2 hours provided by this RN and MEASURING MACHINE TENDER on staff. Pt only c/o rectal pain with BM. Medicated as per [facility] orders. Call pope within reach. Awaiting bed assignment. Will continue to monitor.
[2022-03-12] MEDS: cefTRIAXone sodium 1 GM in 0.9 % Sodium Chloride 50 ML IV (12:59)
[2022-03-12] MEDS: metroNIDAZOLE 0.75 % Vaginal Gel 70 GM TUBE VAGINAL (13:00)
--- NOTE | 2022-03-12 13:51 | PC.NURSE ---
1330: pt a and o to baseline, pt sat up in bed, given lunch. pt conversational. 1335: pt was found by GUILLERMO lee to be cyanotic w/o pulse and apenic. tuna sandwich manually cleared from airway by RN, CPR started by this copy writer. 1 round CPR done. DNR/DNI confirmed. Time of 1340 by vicky.
--- NOTE | 2022-03-12 13:57 | PM.DS ---
DS: Providers Provider Date of Service: 03/12/22 Date of admission: 03/11/22 16:52 Primary care physician: Vanita Wilson MD Consults: 03/11/22 16:20 Consult to Gastroenterology Routine Consulting Provider: Severiano Handley Reason for consultation: Severe constipation; ? medical kinetic agents? Has provider been notified: No DS: Diagnosis Discharge Diagnosis (1) Fecal impaction: Status: Acute (2) Constipation: Status: Acute (3) Aspiration into airway: Status: Acute DS: Summary Hospital Course Hospital Course: Admission note HPI A 61 years old female with PMH of anoxic brain injury, dementia, epilepsy, GERD, HTN, AFib, schizophrenia among others who presents to the hospital from [facility] for abdominal distension and bleeding that was thought vaginal at the facility.? The patient is unable to provide any meaningful history.? History was taken mainly from ED provider and notes. 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 CT scan of the abdomen showed significant colonic distension and stool burden. Admitted for further evaluation and treatment. Hospital course The patient was admitted for treatment of fecal impaction. Had manual disimpaction and started on enema and laxatives with good response as she started to move her bowels. She had her lunch delivered around 13:30 and around 13:35 the nursing staff noticed that she is bluish and has no bowels with events of aspiration as her mouth was fall of fluid. Blue code was called at that point in CPR was started for almost 5 minutes until the medical staff reached and everyone became aware that she is DNR\DNI. She was amount at 13:40. I tried to reach to the family listed on the file but no one answered the phone. Will try to contact family and facility. Time Spent with Patient Time attestation: Total time spent providing and/or coordinating discharge services: Discharge coordination time: Greater than 30 minutes Quality: Safe Use of Opioids Does Pt have an Active Cancer Diagnosis on the Problem List?: No Quality: Stroke Does the patient have a stroke diagnosis?: No Physical Exam Vital Signs: Vital Signs: Last Vital Signs Temp 97.4 F 03/12/22 05:44 Pulse 95 03/12/22 05:44 Resp 16 03/12/22 05:44 BP 117/72 03/12/22 05:44 Pulse Ox 98 03/12/22 05:44 O2 Del Method 03/12/22 05:44 BMI result Body Mass Index 27.8 Const: Other: DS: Data Data Completed and Pending Labs on day of discharge: Laboratory Results - last 24 hr 03/11/22 03/12/22 03/12/22 17:21 06:37 06:37 WBC 18.3 H RBC 4.06 L Hgb 12.5 Hct 39.5 MCV 97.3 MCH 30.8 MCHC 31.6 RDW 13.9 Plt Count 315 MPV 10.5 Absolute Nucleated RBC 0.000 Nucleated RBC % (auto) 0.0 Sodium 143 Potassium 3.9 Chloride 110 H Carbon Dioxide 25 Anion Gap 12 BUN 29 H Creatinine 0.74 Estim Creat Clear Calc 90.9 Estimated GFR > 60 Random Glucose 115 Calcium 8.1 L TSH 1.11 COVID-19 ([facility]) Negative COVID-19 Clin Com See Note Preliminary micro results at discharge 03/11/22 Unknown Urine Culture - Preliminary Urine Catheterized - Straight Catheter Culture in progress. Discharge Plan Discharge Patient Disposition: Discharge Diagnosis: Aspiration Referrals: Vanita Wilson MD [Primary Care Provider] - 1 Week Discharge Medications: No Action sennosides [senna] 8.6 mg Tablet 8.6 mg PO BID acetaminophen 325 mg Tablet 650 mg PO BID atorvastatin 10 mg tablet 1 tab PO DAILY@1830 clozapine 100 mg tablet 1 tab PO DAILY metronidazole 0.75 % gel 1 ea vaginal DAILY olanzapine 10 mg tablet 10 mg PO BID magnesium hydroxide [Milk of Magnesia] 400 mg/5 mL Suspension 30 ml PO BID aspirin 81 mg Tablet,Chewable 81 mg PO DAILY diltiazem HCl 120 mg capsule,extended release 24hr 1 cap PO DAILY clozapine 25 mg tablet 1 tab PO DAILY@1830 Label Comments: TOTAL DOSE OF 225 MG EACH EVENING lorazepam 1 mg tablet 1 tab PO BID lamotrigine 100 mg tablet 1 tab PO BID metoprolol tartrate 25 mg tablet 1 tab PO BID chlorhexidine gluconate 0.12 % mouthwash 15 ml PO DAILY clozapine 200 mg tablet 1 tab PO DAILY@1830 Label Comments: TOTAL DOSE OF 225 MG EACH EVENING cholecalciferol (vitamin D3) 1,250 mcg (50,000 unit) Capsule 1,250 mcg PO QMONTH
--- NOTE | 2022-03-12 14:14 | PC.NURSE ---
Contact Made to [facility] at 1410 Confirmed with FREDY De Dios and Nurse Php Web Developer Mira Ernandez LPN That the patient did not have family/Next of kin for MD to notify. additional contact made to Acting MARIELENA Mazariegos at [facility] to confirm home: [facility] in [place] [phone] Pt is Jehovah Witness Personal contact listed for SNF: Guardian: Lilia Sanchez [address] [place], [place] [phone]/ [phone] Blanca November Address [facility], [address] [address]
--- NOTE | 2022-03-19 11:06 | P.CDIR_ITS ---
Documented by User: Jud Russ RN 03/19/22 11:13 Retrospective Query PHYSICIAN'S DOCUMENTATION REQUEST Date of Query: 03/19/22 1101 Patient Name: Maria L Jean Admit Date: 03/11/22 Dear Doctor, A review of the medical record indicates additional documentation may be needed. Please review below and update the documentation accordingly. Clinical Indicators: The following diagnoses or signs and symptoms were noted in the patient record: H&P: 03/11/22: PMH: Schizoaffective Disorder, Dementia, Anoxic Brain Injury Nurse's Notes: 03/12/22: Pt Alert, oriented to person only which appears to be baseline. Pt found this AM to be covered in large amount of hard formed stool as well as liquid stool. Dried and crusted to skin. Inc care, linen change and T&Px2 every 2 hours provided by this RN and VEHICLE CONTROLS ENGINEER on staff. Pt only c/o rectal pain with BM. Medicated as per MAR orders. Call pope within reach. Awaiting bed assignment. Will continue to monitor. Risk Factors/Clinical Indicators/Treatments Which, if any, of the following is a likely etiology of the above abnormalities and treatment rendered: * Functional quadriplegia (complete immobility due to severe physical disability or [id number] cause) * Age related weakness or frailty - without complete immobility * Generalized weakness - indicate known or suspected etiology * Other etiology ? please specify * Unable to determine Use of terms such as suspected, likely, concern for, or probable (associated with a specific diagnosis that is being evaluated, monitored, or treated as if it exists) are acceptable and can be coded in the inpatient setting, when documented at the time of discharge. Thank you, Jud Russ RN Extension: [phone] Please use your independent medical judgment in providing your response. THIS QUERY IS PART OF THE PERMANENT MEDICAL RECORD Documented by User: Roni Mia MD 03/24/22 07:55 Retrospective Query Provider Response: Other (Frailty )
== END 2022-03-12 17:07 | disposition expired | DRG 392 ==
LOC: HO.ED 13:18 → HO.EDOVER 17:07
PROVIDERS: Internal Medicine Gastroenterology; Nurse Practitioner Family; Admitting Provider Student in an Organized Health Care Education/Training Program; Emergency Provider Emergency Medicine; PCP Internal Medicine; Visit Provider Student in an Organized Health Care Education/Training Program
DX: K59.09 Other constipation (principal); G93.1 Anoxic brain damage, not elsewhere classified; K62.5 Hemorrhage of anus and rectum; G40.909 Epilepsy, unspecified, not intractable, without status epilepticus; F03.90 Unspecified dementia, unspecified severity, without behavioral disturbance, psychotic disturbance, mood disturbance, and anxiety; I10 Essential (primary) hypertension; K21.9 Gastro-esophageal reflux disease without esophagitis; E86.0 Dehydration; I95.9 Hypotension, unspecified; F20.9 Schizophrenia, unspecified; I48.0 Paroxysmal atrial fibrillation; G83.84 Todd's paralysis (postepileptic); E78.5 Hyperlipidemia, unspecified; N93.9 Abnormal uterine and vaginal bleeding, unspecified; T18.0XXA Foreign body in mouth, initial encounter; X58.XXXA Exposure to other specified factors, initial encounter; Y93.89 Activity, other specified; Y92.230 Patient room in hospital as the place of occurrence of the external cause; Y99.8 Other external cause status; Z66 Do not resuscitate; Z79.899 Other long term (current) drug therapy
CPT/HCPCS: 36415; 74177; 80048; 80076; 81001; 82272; 83605; 84443; 85025; 85027; 87040; 87086; 87635; 94799; 96365; 99285; J0696; Q9967